=== PATIENT | male | born 1960 | race African-American/Black ===

== ENCOUNTER 2018-10-18 01:16 | Emergency (ER) | payer MEDICAID ==
[~2018-10-18] VITALS: Ht 167.6 cm; Wt 68.0 kg
[~2018-10-18 01:16] MED LIST: ATEN-60 PO; CARI350T22 PO; MORP-74 PO; NOR10T PO
[2018-10-18 01:55] LABS: Basophils # (auto) 0 uL; Basophils % (auto) 0.5 % (0.0-2.0); Eosinophils # (auto) 0.1 uL; Hemoglobin 14.8 g/dL (13.5-17.5); Lymphocytes # (auto) 1.1 uL; Lymphocytes % (auto) 15.1 % (10.0-50.0); Mean Corpuscular Hemoglobin 30.1 pg (28.0-32.0); Mean Corpuscular Hgb Conc. 33.6 g/dL (32.0-36.0); Mean Corpuscular Volume 89.5 fL (80.0-100.0); Monocytes # (auto) 0.6 uL; Monocytes % (auto) 7.8 % (0.0-12.0); Neutrophils # (auto) 5.8 uL; Neutrophils % (auto) 75.6 % (37.0-80.0); Platelet Count (auto) 152 10^3/uL (140-450); Red Blood Cells 4.92 10^6/uL (4.5-5.90); Red Cell Distribution Width 14.5 % (11.8-14.3); White Blood Cell 7.6 10^3/uL (4.4-10.8)
[2018-10-18 02:13] LABS: Alanine Aminotransferase 21 U/L (16-61); Anion Gap 12 (5-15); BUN/Creatinine Ratio 12.8; Blood Urea Nitrogen 16 mg/dL (7-18); Calcium 9.1 mg/dL (8.5-10.1); Carbon Dioxide 23 mmol/L (21-32); Chloride 103 mmol/L (98-107); GFR African American 76 mL/min; GFR Non-African American 63 mL/min; Glucose 160 mg/dL (74-106); Potassium 3.2 mmol/L (3.5-5.1); Sodium 138 mmol/L (136-145)
[2018-10-18 02:17] LABS: Alkaline Phosphatase 104 U/L (45-117); Aspartate Aminotransferase 26 U/L (15-37); Bilirubin, Total 0.7 mg/dL (0.2-1.0); Total Protein 8.2 g/dL (6.4-8.2)
[2018-10-18] MEDS ORDERED: HYDROcodone-ACET 10/325MG TAB PO ONE (08:00)
[2018-10-18] MEDS ORDERED: POTASSIUM EFFERVESENT TAB 25 MEQ PO ONE (08:00)
[2018-10-18 08:30] VITALS: BP 135/85
== END 2018-10-18 09:08 | disposition home or self-care (01) ==
LOC: EDBD 01:16 → ER 01:17
DX: R07.89 Other chest pain (principal); E87.6 Hypokalemia; I10 Essential (primary) hypertension; G89.4 Chronic pain syndrome; M54.9 Dorsalgia, unspecified; M54.2 Cervicalgia; Z88.6 Allergy status to analgesic agent; Z88.1 Allergy status to other antibiotic agents; Z88.8 Allergy status to other drugs, medicaments and biological substances; Z79.899 Other long term (current) drug therapy
CPT/HCPCS: 36415; 71046; 80053; 84484; 85025; 93005

== ENCOUNTER 2019-06-12 21:21 | Emergency (ER) | payer MEDICAID ==
[~2019-06-12] VITALS: Ht 167.6 cm; Wt 63.5 kg
[2019-06-13] MEDS ORDERED: LOSARTAN POTASSIUM 50 MG TAB PO ONE (06:30)
[2019-06-13] MEDS ORDERED: amLODIPine BESYLATE 5 MG TAB PO ONE (06:30)
[2019-06-13 06:33] VITALS: BP 153/97
== END 2019-06-13 06:30 | disposition home or self-care (01) ==
LOC: ER 21:26
DX: I10 Essential (primary) hypertension (principal); M79.672 Pain in left foot; G89.29 Other chronic pain; Z76.0 Encounter for issue of repeat prescription; Z88.1 Allergy status to other antibiotic agents; Z88.6 Allergy status to analgesic agent; Z88.8 Allergy status to other drugs, medicaments and biological substances; Z79.899 Other long term (current) drug therapy

== ENCOUNTER 2019-06-14 08:52 | Emergency (ER) | payer MEDICAID ==
[~2019-06-14] VITALS: Ht 167.6 cm; Wt 63.5 kg
[2019-06-14 09:14] VITALS: BP 146/90
[2019-06-14] MEDS ORDERED: LOSARTAN POTASSIUM 50 MG TAB PO ONE (09:30)
[2019-06-14] MEDS ORDERED: amLODIPine BESYLATE 5 MG TAB PO ONE (09:30)
[2019-06-14] MEDS ORDERED: ACETAMINOPHEN/CODEINE#3 (300/30mg) TAB PO ONE (09:30)
== END 2019-06-14 09:54 | disposition home or self-care (01) ==
LOC: ER 08:54
DX: G89.29 Other chronic pain (principal); M25.572 Pain in left ankle and joints of left foot; I10 Essential (primary) hypertension; Z76.0 Encounter for issue of repeat prescription; Z88.1 Allergy status to other antibiotic agents; Z88.6 Allergy status to analgesic agent

== ENCOUNTER 2019-06-14 22:10 | Emergency (ER) | payer SELFPAY ==
[~2019-06-14] VITALS: Ht 167.6 cm; Wt 63.5 kg
[2019-06-15 05:45] VITALS: BP 170/92
[2019-06-15] MEDS ORDERED: LEVETIRACETAM 500 MG TAB PO ONE (07:30)
== END 2019-06-15 07:37 | disposition home or self-care (01) ==
LOC: ER 22:11
DX: F32.9 Major depressive disorder, single episode, unspecified (principal); F41.9 Anxiety disorder, unspecified; I10 Essential (primary) hypertension; F20.9 Schizophrenia, unspecified; F17.210 Nicotine dependence, cigarettes, uncomplicated; Z88.6 Allergy status to analgesic agent; Z88.1 Allergy status to other antibiotic agents; Z88.8 Allergy status to other drugs, medicaments and biological substances; Z76.0 Encounter for issue of repeat prescription

== ENCOUNTER 2019-06-17 00:34 | Emergency (ER) | payer MEDICAID ==
[~2019-06-17] VITALS: Ht 167.6 cm; Wt 61.2 kg
[2019-06-17 02:11] VITALS: BP 139/99
== END 2019-06-17 04:42 | disposition left against medical advice (07) ==
LOC: ER 00:39
DX: Z76.0 Encounter for issue of repeat prescription (principal); Z53.21 Procedure and treatment not carried out due to patient leaving prior to being seen by health care provider

== ENCOUNTER 2019-09-13 02:38 | Emergency (ER) | payer MEDICAID ==
[~2019-09-13] VITALS: Ht 167.6 cm; Wt 63.5 kg
[~2019-09-13 02:38] MED LIST changes: -MORP-74 PO; +MORP30TA5 PO
[2019-09-13 03:07] VITALS: BP 164/112
== END 2019-09-13 07:45 | disposition left against medical advice (07) ==
LOC: ER 02:38
DX: R56.9 Unspecified convulsions (principal); Z53.21 Procedure and treatment not carried out due to patient leaving prior to being seen by health care provider

== ENCOUNTER 2019-09-14 04:19 | Emergency (ER) | payer MEDICAID ==
[~2019-09-14] VITALS: Ht 167.6 cm; Wt 63.5 kg
[2019-09-14] MEDS ORDERED: cloNIDine HCL 0.1 MG TAB ONE (04:41)
[2019-09-14] MEDS ORDERED: cloNIDine HCL 0.1 MG TAB PO ONE (05:00)
[2019-09-14 06:43] LABS: Basophils # (auto) 0.1 uL; Basophils % (auto) 0.7 % (0.0-2.0); Eosinophils # (auto) 0 uL; Eosinophils % (auto) 0.3 % (0.0-7.0); Hematocrit 43.6 % (41.0-53.0); Hemoglobin 14.8 g/dL (13.5-17.5); Lymphocytes # (auto) 1.2 uL; Lymphocytes % (auto) 14.3 % (10.0-50.0); Mean Corpuscular Hemoglobin 30.8 pg (28.0-32.0); Mean Corpuscular Volume 90.8 fL (80.0-100.0); Monocytes # (auto) 0.9 uL; Monocytes % (auto) 10.6 % (0.0-12.0); Neutrophils # (auto) 6.4 uL; Neutrophils % (auto) 74.1 % (37.0-80.0); Nucleated Red Blood Cells % 0.1 %; Platelet Count (auto) 170 10^3/uL (140-450); Red Cell Distribution Width 14.2 % (11.8-14.3); White Blood Cell 8.6 10^3/uL (4.4-10.8)
[2019-09-14 07:22] LABS: Albumin 4.5 g/dL (3.4-5.0); BUN/Creatinine Ratio 8.2; Bilirubin, Total 0.5 mg/dL (0.2-1.0); Calcium 9.3 mg/dL (8.5-10.1); Potassium 3.3 mmol/L (3.5-5.1); Total Protein 8.5 g/dL (6.4-8.2)
[2019-09-14 10:00] VITALS: BP 162/99
== END 2019-09-14 10:17 | disposition left against medical advice (07) ==
LOC: ER 04:19
DX: I10 Essential (primary) hypertension (principal); R56.9 Unspecified convulsions; F17.210 Nicotine dependence, cigarettes, uncomplicated; Z88.1 Allergy status to other antibiotic agents; Z88.8 Allergy status to other drugs, medicaments and biological substances
CPT/HCPCS: 36415; 80053; 85025